=== PATIENT | male | born 1995 | race Caucasian/White ===

== ENCOUNTER 2024-01-26 23:42 | Emergency (ER) | payer OTHER, SELFPAY ==
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
[2024-01-26 23:40] VITALS: BP 121/63; PULSE 115; RESP 20; TEMP 36.7; O2SAT 96
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
[2024-01-27] MEDS: SODIUM CHLORIDE 0.9% IV 1,000 ML 999 ML IV CONT (00:03)
[2024-01-27] MEDS: ONDANSETRON INJ 4 MG/2 ML VIAL IV PUSH (00:10)
[2024-01-27] MEDS: LORazepam INJ (*CRX) 2 MG/ML VIAL 1 MG IV PUSH (00:10)
[2024-01-27 00:47] VITALS: BP 102/48; PULSE 90; RESP 19; O2SAT 98
[2024-01-27 00:48] VITALS: O2SAT 99
--- NOTE | 2024-01-27 00:48 | PC.NURSE ---
Pt O2 dropped into the low 80s, pt sleeping at this time. Pt placed on 2L NC and O2 back up to upper 90s
[2024-01-27 01:13] VITALS: BP 107/51; PULSE 92; RESP 18; O2SAT 98
[2024-01-27 01:59] VITALS: PULSE 100; RESP 17; O2SAT 97
--- NOTE | 2024-01-27 01:59 | PC.NURSE ---
Pt to CT scan via stretcher at this time.
[2024-01-27 02:13] LABS: Estimated CRCL calculation 95 ml/min; Estimated Glomerular Filt Rate > 60
[2024-01-27 03:28] VITALS: BP 144/84; PULSE 97; RESP 17; O2SAT 97
[2024-01-27] MEDS: TETANUS,DIPHTHERIA,AC PERTUSSIS ADULT (0.5 ML) BOOSTRIX IM (03:37)
[2024-01-27 04:52] VITALS: BP 133/88; PULSE 90; RESP 20; O2SAT 99
== END 2024-01-27 04:54 | disposition home or self-care (01) ==
PROVIDERS: Emergency Provider Registered Nurse; PCP Internal Medicine
DX: S01.01XA Laceration without foreign body of scalp, initial encounter (principal); S19.9XXA Unspecified injury of neck, initial encounter; Z23 Encounter for immunization; K21.9 Gastro-esophageal reflux disease without esophagitis; F17.290 Nicotine dependence, other tobacco product, uncomplicated; Z79.899 Other long term (current) drug therapy; Y04.2XXA Assault by strike against or bumped into by another person, initial encounter
CPT/HCPCS: 12001; 70450; 70486; 70498; 72125; 72131; 90471; 90715; 96361; 96374; 99284; J2060; J2405; J7030; Q9967